=== PATIENT | male | born 1990 | race Caucasian/White ===

== ENCOUNTER 2020-12-18 16:28 | Emergency (ER) | payer SELFPAY ==
[~2020-12-18] VITALS: Ht 177.8 cm; Wt 108.9 kg
[2020-12-18] MEDS ORDERED: MECLIZINE HCL 25 MG TAB PO ONE (18:00)
[2020-12-18 18:16] VITALS: BP 122/80
== END 2020-12-18 18:34 | disposition home or self-care (01) ==
LOC: ER 16:28
DX: M79.18 Myalgia, other site (principal); H66.93 Otitis media, unspecified, bilateral; F41.9 Anxiety disorder, unspecified
CPT/HCPCS: 72070; 72100

== ENCOUNTER 2023-10-06 04:45 | Emergency (ER) | payer MEDICAID ==
[~2023-10-06] VITALS: Ht 180.3 cm; Wt 113.0 kg
[2023-10-06 05:21] VITALS: BP 138/91; PULSE 79; RESP 20; TEMP 98.7; O2SAT 98
[2023-10-06] MEDS ORDERED: KETOROLAC TROMETH 60MG/2ML VIAL IM ONE (05:30)
[2023-10-06] MEDS ORDERED: AUG875T PO (05:41)
== END 2023-10-06 05:53 | disposition home or self-care (01) ==
LOC: ER 04:45
DX: J32.9 Chronic sinusitis, unspecified (principal); F41.9 Anxiety disorder, unspecified
CPT/HCPCS: 96372; 99283; J1885

== ENCOUNTER 2025-03-06 21:13 | Emergency (ER) | payer MEDICAID ==
[~2025-03-06] VITALS: Ht 180.3 cm; Wt 108.7 kg
[~2025-03-06 21:13] MED LIST: AUG875T PO
[2025-03-06 21:30] VITALS: TEMP 99.2
--- NOTE | 2025-03-06 21:54 | ED.PDOC ---
Eye-HPI HPI Comments 35 y.o male presents to the ED for a chief complaint of pain to his molar on the lower left side. Patient reports pain with a blister developed last night which has progressively worsened. Patient had a previous tooth infection about a year ago with similar complaint. Patient has been taking Motrin with pain relief at home. No fever, chills, SOB reported. Patient has a followed up with a dentist yet. Chief Complaint: Tooth Pain Time Seen by MD: 21:46 Reviewed Notes: Nurses Notes, Medications, Allergies Allergies: Coded Allergies: NO KNOWN ALLERGIES (Unverified , 12/18/20) Home Meds Active Scripts Amoxicillin & Pot Clavulanate (AUGMENTIN TABLET) 875 Mg Tb, 875 MG PO BID for 7 Days, #14 TAB Prov:ALAINA NIELSEN PAC 10/06/23 Information Source: Patient Mode of Arrival: Ambulatory Timing: Days (1) Duration: Since onset Quality: Pain Mouth: Left, Molar, Tender, Swelling Associated signs and symptoms: Tooth Pain Past Medical History PAST MEDICAL HISTORY: Anxiety Surgical History: Denies all surgeries Family History Family History: Reviewed,noncontributory to illness Social History Smoker: Non-Smoker Alcohol: Denies ETOH Use Drugs: Denies Drug Use Lives In: Home Constitutional: denies: chills, diaphoresis, fatigue, fever, malaise, sweats, weakness, others EENTM: reports: others (Left lower dental pain); denies: blurred vision, double vision, ear bleeding, ear discharge, ear drainage, ear pain, ear ringing, eye pain, eye redness, hearing loss, mouth pain, mouth swelling, nasal discharge, nose bleeding, nose congestion, nose pain, photophobia, tearing, throat pain, throat swelling, voice changes Respiratory: denies: cough, hemoptysis, orthopnea, SOB at rest, shortness of breath, SOB with excertion, stridor, wheezing, others Cardiovascular: denies: chest pain, dizzy spells, diaphoresis, Dyspnea on exertion, edema, irregular heart beat, left arm pain, lightheadedness, palpitations, PND, syncope, others Gastrointestinal: denies: abdomen distended, abdominal pain, blood streaked bowels, constipated, diarrhea, dysphagia, difficulty swallowing, hematemesis, melena, nausea, poor appetite, poor fluid intake, rectal bleeding, rectal pain, vomiting, others Genitourinary: denies: burning, dysuria, flank pain, frequency, hematuria, incontinence, penile discharge, penile sore, pain, testicle pain, testicle swelling, urgency, others Neurological: denies: dizziness, fainting, headache, left sided numbness, left sided weakness, numbness, paresthesia, pre-existing deficit, right sided numbnes s, right sided weakness, seizure, speech problems, tingling, tremors, weakness, others Musculoskeletal: denies: back pain, gout, joint pain, joint swelling, muscle pain, muscle stiffness, neck pain, others Integumetry: denies: bruises, change in color, change in hair/nails, dryness, laceration, lesions, lumps, rash, wounds, others Allergic/Immunocompromised: denies: Difficulty Healing, Frequent Infections, Hives, Itching, others Hematologic/Lymphatic: denies: anemia, blood clots, easy bleeding, easy bruising, swollen glands, others Endocrine: denies: excessive hunger, excessive sweating, excessive thirst, excessive urination, flushing, intolerance to cold, intolerance to heat, unexplained weight gain, unexplained weight loss, others Psychiatric: denies: anxiety, bipolar disorder, depression, hopeless, panic disorder, schizophrenia, sleepless, suicidal, others All Other Systems: Reviewed and Negative Physical Exam General Appearance: Moderate Distress ([place] distress due to dental pain concerns. Patient declined any pain medication while at the facility.), Normal HEENT: Pharynx Normal, TMs Normal, Other (Patient reveals significant decay at tooth 18 of the left lower jaw. Possible dental fracture as well. Localized edema throughout the gingiva.) Neck: Full Range of Motion, Non-Tender, Normal, Normal Inspection Respiratory: Chest Non-Tender, Lungs Clear, No Accessory Muscle Use, No Respiratory Distress, Normal Breath Sounds Cardiovascular: No Edema, No JVD, No Murmur, No Gallop, Normal Peripheral Pulses, Regular Rate/Rhythm Breast Exam: Deferred Gastrointestinal: No Organomegaly, Non Tender, No Pulsatile Mass, Normal Bowel Sounds, Soft Genitalia: Deferred Pelvic: Deferred Rectal: Deferred Extremities: No calf tenderness, Normal capillary refill, Normal inspection, Normal range of motion, Non-tender, No pedal edema Neurologic: Alert, No Motor Deficits, Normal Affect, Normal Mood, No Sensory Deficits Cerebellar Function: Normal Reflexes: Normal Skin: Dry, Normal Color, Warm Lymphatic: No Adenopathy Was a procedure done? Was a procedure done?: No EENT DIFF Eye: N/A Mouth: Other (Dental abscess, dental joe, dental fracture) X-Ray, Labs, Meds, VS Vital Signs Date Time Temp Pulse Resp B/P (MAP) Pulse Ox O2 Delivery O2 Flow Rate FiO2 03/06/25 21:30 99.2 93 18 116/64 (81) 97 99.2 X-Ray, Labs, Meds, VS Comment Discussed the patient's complaints with him. Advised that I will send him home with a prescription for antibiotics to be utilize as directed until completion. Patient will need to follow up with a dentist for definitive and long-term evaluation and management. Time of 1ST Reevaluation: 22:48 Reevaluation 1ST: Unchanged Consultation: PCP, Other (Dentist) Patient Education/Counseling: Diagnosis, Treatment, Prognosis Family Education/Counseling: Diagnosis, Treatment, No Family Present SEPSIS Sepsis Screen Recent Procedure: No On Antibiotic Therapy: No Respiratory Rate >20: No Heart Rate >90: No Temp<36 C (96.8 F) or >38.3 C: No SBP <90 or MAP <65 mmHG: No New Acute Mental Status Change: No Is the patient on CPAP, BIPAP,: No Vital Signs Date Time Temp Pulse Resp B/P (MAP) Pulse Ox O2 Delivery O2 Flow Rate FiO2 03/06/25 21:30 99.2 93 18 116/64 (81) 97 99.2 Departure 1 Departure Time of Disposition: 22:48 Impression: Primary Impression: Dental abscess Disposition: HOME / SELF CARE / HOMELESS Condition: Stable Additional Instructions: Advised patient utilize antibiotics as directed until completion as well as pain medication as needed. Patient needs to follow up with dentist for definitive evaluation and management. e-Prescriptions Acetaminophen (Acetaminophen) 500 Mg Tab 500 MG PO Q4HP PRN, #30 TAB Prov: DENISE LANDA PAC 03/06/25 Ibuprofen Micronized (Ibuprofen) 800 Mg Tab 800 MG PO Q8HP PRN, #20 TAB Prov: DENISE LANDA PAC 03/06/25 Amoxicillin & Pot Clavulanate (AUGMENTIN TABLET) 875 Mg Tb 875 MG PO BID for 10 Days, #20 TAB Prov: DENISE LANDA PAC 03/06/25 Discharged With: Self, Friend Critical Care Note Critical Care Time?: No Stability Stability form required: No I personally scribed for DENISE LANDA PAC ([email or web address]) on 03/06/25 at 21:54. Electronically submitted by Anna Grant ([facility]). DENISE LANDA PAC Mar 06, 2025 21:54
[2025-03-06] MEDS ORDERED: ACET500T58 PO (22:50)
[2025-03-06] MEDS ORDERED: IBUP-1455 PO (22:50)
[2025-03-06] MEDS ORDERED: AUG875T PO (22:50)
[2025-03-07] VITALS: BP 99/73; PULSE 75; RESP 16; O2SAT 97
== END 2025-03-07 00:02 | disposition home or self-care (01) ==
LOC: ER 21:13
DX: K04.7 Periapical abscess without sinus (principal); F41.9 Anxiety disorder, unspecified